=== PATIENT | female | born 1975 | race Caucasian/White ===

== ENCOUNTER → 2017-02-05 | Outpatient (CLI) | payer BC ==
[~2017-02-05] MED LIST: CTLP20T PO; HYDR12.56 PO; MELO-195 PO
--- NOTE | 2017-02-08 13:53 | Diagnostic Imaging Report ---
Bilateral screening mammogram. The current study was also evaluated with a Computer Aided Detection (CAD) system. INDICATION: Screening. No current complaints stated on the questionnaire. COMPARISON: 01/20/16. FINDINGS: The breasts are composed of heterogeneously dense parenchyma which may decrease mammographic sensitivity. There is no mass, architectural distortion or suspicious cluster of calcification. Allowing for technique and positional differences, no suspicious change is seen. IMPRESSION: Dense breasts with no definite change. ACR BI-RADS Category 2: Benign findings. Result letter will be mailed to the patient. Note: At least 10% of breast cancer is not imaged by mammography. Dictated by: Dictated on workstation # [id number]
== END ==
LOC: RAD 07:26
PROVIDERS: ATTEND Family Medicine
DX: Z12.31 Encounter for screening mammogram for malignant neoplasm of breast (principal)
CPT/HCPCS: 77067

== ENCOUNTER → 2018-02-07 | Outpatient (CLI) | payer BC ==
--- NOTE | 2018-02-07 10:22 | Diagnostic Imaging Report ---
INDICATION: Routine screening. COMPARISON: 02/05/2017 and 01/20/2016. TECHNIQUE: Screening digital mammography was performed bilaterally with a Computer Aided Detection (CAD) system. FINDINGS: Both breasts are heterogeneously dense, limiting the sensitivity of mammography. The overall parenchymal pattern appears to be stable. There are benign-appearing intraparenchymal lymph nodes in the upper outer aspects of both breasts. No spiculated mass or malignant appearing microcalcifications are seen. The axillae are unremarkable. IMPRESSION: No mammographic features suspicious for malignancy are identified. ACR BI-RADS Category 2: Benign findings. Result letter will be mailed to the patient. Note: At least 10% of breast cancer is not imaged by mammography. Dictated by: Dictated on workstation # [id number]
== END ==
LOC: RAD 07:44
PROVIDERS: ATTEND Family Medicine
DX: Z12.31 Encounter for screening mammogram for malignant neoplasm of breast (principal)
CPT/HCPCS: 77067

== ENCOUNTER → 2019-02-16 | Outpatient (CLI) | payer BC ==
--- NOTE | 2019-02-16 20:38 | Diagnostic Imaging Report ---
INDICATION: Routine screening. COMPARISON: Comparison is made with prior mammograms from 02/07/2018 and 02/05/2017. TECHNIQUE: 2D and 3D bilateral screening mammography was performed with computer-aided detection (CAD) system. FINDINGS: Both breasts are heterogeneously dense, limiting the sensitivity of mammography. Benign-appearing nodular densities in the upper-outer aspects of both breasts appear stable. No spiculated mass or malignant-appearing microcalcifications are seen. The axillae are unremarkable. IMPRESSION: No mammographic features suspicious for malignancy are identified. ACR BI-RADS Category 2: Benign findings. Result letter will be mailed to the patient. Note: At least 10% of breast cancer is not imaged by mammography. Dictated by: Dictated on workstation # [id number]
== END ==
LOC: RAD 07:27
PROVIDERS: ATTEND Family Medicine
DX: Z12.31 Encounter for screening mammogram for malignant neoplasm of breast (principal)
CPT/HCPCS: 77067

== ENCOUNTER → 2019-07-11 | Outpatient (CLI) | payer BC ==
[~2019-07-11] MED LIST changes: +CATHETER FLUSH 10 ML SYR IV PRN; +REGADENOSON 0.4 MG/5 ML SYR (LEXISCAN) IV ONE
[2019-07-11 13:33] VITALS: BP 142/76
--- NOTE | 2019-07-11 20:10 | STRESS TEST ---
DATE OF SERVICE: 07/11/2019 RESTING AND POST REGADENOSON TECHNETIUM-99M TETROFOSMIN SPECT CT IMAGING ORDERING PHYSICIAN: Dr. Atkins. PRIMARY PHYSICIAN: Dr. Pena. CLINICAL DIAGNOSIS: Chest discomfort. Baseline images were carried out after injection of 10.69 mCi of technetium-99m Tetrofosmin. This was followed by 0.4 mg regadenoson and 30.3 mCi of technetium-99m Tetrofosmin for stress imaging. The patient noted abdominal cramping, nausea and headache following regadenoson infusion, which resolved in a few minutes. The electrocardiogram showed sinus rhythm and did not change significantly with the regadenoson infusion. Review of images at rest and following stress does not indicate any significant perfusion defects consistent with significant myocardial ischemia or infarction. Gated images show normal global left ventricular systolic function with normal regional wall motion. Left ventricular ejection fraction is calculated to be 78%. CONCLUSIONS: 1. No evidence of any significant myocardial ischemia or infarction on this study. 2. Normal regional wall motion. 3. Normal global left ventricular systolic function with a calculated ejection fraction of 78%. Job ID: [id number] DocumentID: [id number] Dictated Date: 07/11/2019 15:45:09 Power Wood Sawyer Date: 07/11/2019 20:10:31 Dictated By: TOBIAS ATKINS MD, MA, FACP, FACC,
== END ==
LOC: CARD 11:35
PROVIDERS: ATTEND Internal Medicine Cardiovascular Disease
DX: M79.89 Other specified soft tissue disorders (principal); R07.89 Other chest pain; R06.02 Shortness of breath; R00.2 Palpitations
CPT/HCPCS: 78452; 93017; 93225; 93226

== ENCOUNTER 2019-07-25 20:53 | Outpatient (CLI) | payer BC ==
[~2019-07-25 20:53] MED LIST changes: -CATHETER FLUSH 10 ML SYR IV PRN; -REGADENOSON 0.4 MG/5 ML SYR (LEXISCAN) IV ONE
== END 2019-07-26 06:45 | disposition home or self-care (01) ==
LOC: SLEEP 20:53
PROVIDERS: ATTEND Nurse Practitioner
DX: G47.33 Obstructive sleep apnea (adult) (pediatric) (principal); G47.10 Hypersomnia, unspecified
CPT/HCPCS: 95810

== ENCOUNTER 2019-09-08 05:35 | Outpatient (CLI) | payer BC ==
[~2019-09-08] VITALS: Ht 162 cm; Wt 90.9 kg
[2019-09-08] MEDS ORDERED: LOSA1TAB23 PO (09:45)
== END 2019-09-08 10:57 | disposition home or self-care (01) ==
LOC: PREOP 05:35
PROVIDERS: ATTEND Surgery
DX: Z01.818 Encounter for other preprocedural examination (principal)

== ENCOUNTER 2019-09-15 10:17 | Day surgery (SDC) | payer BC ==
--- NOTE | 2019-09-04 12:19 | HISTORY AND PHYSICAL ---
DATE OF SERVICE: PROCEDURE DATE: 09/15/2019. ATTENDING PHYSICIAN: Dr. Pena. HISTORY OF PRESENT ILLNESS: The patient is a 43-year-old female who is known to us. She does have a history of colon polyps and reports these were first detected in her teen years. 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 She did have a colonoscopy in 2007 where she was found to have a benign polyp of the sigmoid colon. She then had been in 2008 where 2 polyps were identified at the transverse and ascending colon, which were also benign. She did have a colonoscopy in 2011. A hyperplastic polyp was detected in the descending colon. She then underwent her last colonoscopy in 2014 where it was found to have a hyperplastic polyp of the distal sigmoid colon with some mild sigmoid diverticulosis and chronic stage I external and internal hemorrhoids. On today's visit, the patient reports she is again in need of a followup colonoscopy. She denies any blood in her stool as well as no family history of colon cancer. She does report occasional episodes of diarrhea, but denies any constipation or any abdominal pain. She denies any other symptoms. PAST MEDICAL HISTORY: Obstructive sleep apnea, hypertension, mild cardiomegaly. PAST SURGICAL HISTORY: Tonsillectomy in , in 1990, tubal ligation in 1998, partial hysterectomy in 2002, laparoscopic cholecystectomy in 2005, left foot ORIF in 2007, removal of left foot hardware in 2008, repair of left median nerve in 2017, removal of scar tissue and tendon release of the left wrist in 2018. ALLERGIES: No known drug allergies. MEDICATIONS: Losartan 100 mg daily. SOCIAL HISTORY: Negative for social for alcohol. FAMILY HISTORY: Mother; DVT, hypertension. Father; hypertension, myocardial infarction. Brother, hypertension. Paternal grandmother; lung cancer, stroke, hypertension. Paternal grandfather; hypertension. Maternal grandmother and grandfather; hypertension. VITAL SIGNS: Blood pressure is 142/68. Current weight is 204.9, 5 feet 3 inches. REVIEW OF SYSTEMS: A well-nourished female, in no acute distress. She is not experiencing any shortness of breath or difficulty breathing. No chest pain, palpitations or diaphoresis. No nausea, vomiting or abdominal pain. She does report occasional episodes of diarrhea, but no constipation. No red blood per rectum. No dark tarry stools. No fever or chills. No recent inadvertent weight loss. All other review of systems negative. PHYSICAL EXAMINATION: CHEST: Clear. Good breath sounds bilaterally. HEART: Regular, no murmurs. EXTREMITIES: No lower extremity edema. Negative Homans sign. HEENT: No scleral icterus. No cervical lymphadenopathy. ABDOMEN: Soft, nontender, nondistended. SKIN: Warm, dry and pink. NEUROLOGIC: Awake, alert and oriented x3. ASSESSMENT AND PLAN: A 43-year-old female with a history of polyps who has also had juvenile polyps. Her last colonoscopy was in 2014 where a polyp was again detected, which was hyperplastic and benign. We will at this time recommend proceeding with a screening colonoscopy. The risks and benefits of the procedure as well as the procedure and home care instructions were explained to the patient. The patient verbalized understanding of instructions and agrees to this plan. At this time, we will proceed with scheduling the patient for a screening colonoscopy. Job ID: [id number] DocumentID: [id number] Dictated Date: 09/04/2019 11:02:17 Produce Runner Date: 09/04/2019 12:18:55 Dictated By: BURAK ALCAZAR APRN
[2019-09-15] VITALS (10 sets, daily range): BP systolic 104–136; BP diastolic 60–86
[~2019-09-15] VITALS: Ht 160 cm; Wt 90.9 kg
[~2019-09-15 10:17] MED LIST changes: +LOSA1TAB23 PO
[2019-09-15] MEDS ORDERED: NS IV 500 ML 500 ML IV PRN (10:24)
[2019-09-15] MEDS ORDERED: NS IV 500 ML 500 ML ONE (10:26)
[2019-09-15] MEDS ORDERED: fentaNYL INJECTION 100 MCG/2 ML AMP IVP ONE (10:30)
[2019-09-15] MEDS ORDERED: LIDOCAINE JELLY 2% 6 ML SYRINGE MM PRN (10:30)
--- NOTE | 2019-09-15 10:43 | Conscious Sedation/ASA ---
Conscious Sedation Pre-Proced Time 10:40 ASA Score 2 For ASA 3 and 4: Consider anesthesia and medical clearance. Also, for patients with a history of failed moderate sedation consider anesthesia. Airway Lungs Heart ASA score ASA 1: a normal healthy patient ASA 2: a patient with a mild systemic disease (mid diabetes, controlled hypertension, obesity ASA 3: a patient with a severe systemic disease that limits activity (angina, COPD, prior Myocardial infarction) ASA 4: a patient with an incapacitating disease that is a constant threat to life (CHF, renal failure) ASA 5: a moribund patient not expected to survive 24 hrs. (ruptured aneurysm) ASA 6: a declared brain- patient whose organs are being harvested. For emergent operations, add the letter E after the classification Mallampati Classification Grade 2 Sedation Plan Analgesia, Amnesia, Plan communicated to team members, Discussed options with patient/fam, Discussed risks with patient/fam The patient is an appropriate candidate to undergo the planned procedure, sedation, and anesthesia. The patient immediately re-assessed prior to indication. JAVED OLIVO MD Sep 15, 2019 10:43 POS
--- NOTE | 2019-09-15 10:44 | Progress Note-Pre Operative ---
Pre-Operative Progress Note H&P Reviewed The H&P was reviewed, patient examined and no changes noted. Date Seen by Provider: Sep 15, 2019 Time Seen by Provider: 10:40 Date H&P Reviewed: Sep 15, 2019 Time H&P Reviewed: 10:40 Pre-Operative Diagnosis: hx colon polyp/screening JAVED OLIVO MD Sep 15, 2019 10:44 POS
[2019-09-15] MEDS ORDERED: ACETAMINOPHEN 325 MG TABLET PO PRN (10:45)
[2019-09-15] MEDS ORDERED: ONDANSETRON 4 MG/2 ML (SDV) Z0FRAN IVP PRN (10:45)
[2019-09-15] MEDS ORDERED: HYDROcodone/APAP 5 MG/325 MG (LORTAB) TAB PO PRN (10:45)
[2019-09-15] MEDS ORDERED: morphine INJ 10 MG/ML 1ML (SYR OR VIAL) IVP PRN ×2 (10:45)
--- NOTE | 2019-09-15 10:46 | Discharge Inst-Surgical ---
D/C Lap Instructions-GEOVANI Follow Up Activity as tolerated High Fiber Diet 25g or more per day Avoid Alcohol, Caffeine, Spicy [place] and Acid foods. Drink 64 fluid oz or more of fluids per day. Symptoms to Report: Fever over 101 degree F, Nausea/Vomiting If any problems/questions: Contact your physician or go to Emergency Room JAVED OLIVO MD Sep 15, 2019 10:46 POS
[2019-09-15] MEDS: MIDAZOLAM 5 MG/5 ML (VERSED) VIAL IV PRN ×5 (11:10→11:25)
[2019-09-15] MEDS ORDERED: MIDAZOLAM 5 MG/5 ML (VERSED) VIAL ONE ×2 (11:11)
[2019-09-15] MEDS ORDERED: LIDOCAINE JELLY 2% 6 ML SYRINGE ONE (11:11)
[2019-09-15] MEDS ORDERED: fentaNYL INJECTION 100 MCG/2 ML AMP ONE ×2 (11:12→11:17)
--- NOTE | 2019-09-15 12:40 | Progress Note-Post Operative ---
Post-Operative Progess Note Surgeon (s)/Expenditure Requisition Clerk (s) Surgeon JAVED OLIVO MD Expenditure Requisition Clerk: none Pre-Operative Diagnosis hx colon polyp/screening Post-Operative Diagnosis mild chronic stage 2 ext and int hemorrhoids. Procedure & Operative Findings Date of Procedure 09/15/19 Procedure Performed/Findings colonoscopy Anesthesia Type cs Estimated Blood Loss Estimated blood loss (mL): minimal Specimens/Packing Specimens Removed none JAVED OLIVO MD Sep 15, 2019 12:40 POS
--- NOTE | 2019-09-15 14:41 | OPERATIVE REPORT ---
DATE OF SERVICE: 09/15/2019 ATTENDING PRIMARY CARE PHYSICIAN: Beth Pena MD PREOPERATIVE DIAGNOSIS: History of juvenile polyps. POSTOPERATIVE DIAGNOSIS: Mild chronic stage II external and internal hemorrhoids. Mild sigmoid diverticulosis. PROCEDURE: Colonoscopy. SURGEON: Javed Olivo MD ANESTHESIA: Conscious sedation. ESTIMATED BLOOD LOSS: Minimal. FINDINGS: Mild chronic stage II external and internal hemorrhoids. Mild sigmoid diverticulosis. DISPOSITION: The patient tolerated the procedure well. INDICATIONS: The patient is a 43-year-old female known to us. She has a history of juvenile polyps as well as benign hyperplastic polyps. She began to have colonoscopies at a young age. She reports as an adult she did have a colonoscopy in 2007, 2008 as well as in 2014. The last colonoscopy we had done and she was found to have a small hyperplastic polyp of the distal sigmoid colon; however, no juvenile polyps. She is again here for a followup for her history of juvenile polyposis syndrome. DESCRIPTION OF PROCEDURE: The patient was brought to the endoscopy suite, laid in the left lateral decubitus position. After adequate IV pain and sedative medications and conscious sedation anesthesia, a digital rectal examination was performed. Mild chronic stage II external and internal hemorrhoids identified, not actively edematous nor inflamed and no bleeding. Normal sphincter tone was felt and there were no palpable masses. The endoscope was then intubated to the anus and rectum gently insufflated. The endoscope was then advanced to the valves of [place] of the rectum with no polyps or any neoplasms identified. In the sigmoid colon, there was a very mild or early diverticulosis. The endoscope was then advanced to the remainder of the descending, transverse and ascending colon to the cecum. These segments were normal. There were no polyps or any neoplasms identified throughout the colon or rectum. The endoscope was then slowly withdrawn while taking a second look and suctioning of residual air with no additional findings. The patient tolerated the procedure well. We will recommend a high fiber diet with at least 25 grams of fiber daily as well as significant amounts of water to promote soft stools on a daily basis. Due to her history of juvenile polyposis syndrome we will recommend a followup colonoscopy in 5 years. Job ID: [id number] DocumentID: [id number] Dictated Date: 09/15/2019 11:39:59 Retail Furniture Sales Date: 09/15/2019 14:39:52 Dictated By: JAVED OLIVO MD
== END 2019-09-15 12:15 | disposition home or self-care (01) ==
LOC: ENDO 10:17
PROVIDERS: ATTEND Surgery
DX: Z12.11 Encounter for screening for malignant neoplasm of colon (principal); K57.30 Diverticulosis of large intestine without perforation or abscess without bleeding; K64.1 Second degree hemorrhoids; K64.8 Other hemorrhoids; G47.33 Obstructive sleep apnea (adult) (pediatric); I10 Essential (primary) hypertension; Z86.010 Personal history of colon polyps; Z90.710 Acquired absence of both cervix and uterus; Z90.49 Acquired absence of other specified parts of digestive tract; Z86.718 Personal history of other venous thrombosis and embolism; Z79.82 Long term (current) use of aspirin; Z86.73 Personal history of transient ischemic attack (TIA), and cerebral infarction without residual deficits; Z80.1 Family history of malignant neoplasm of trachea, bronchus and lung

== ENCOUNTER → 2020-03-06 | Outpatient (CLI) | payer BC ==
--- NOTE | 2020-03-06 09:12 | Diagnostic Imaging Report ---
EXAMINATION: Digital mammogram bilateral screening with CAD. INDICATION: Screening. COMPARISON: This study was compared to the prior exams of 02/16/2019, 02/07/2018, 02/05/2017, and 01/20/2016. PERSONAL HISTORY: At this time, there are no current complaints. FINDINGS: The fibroglandular tissue in both breasts is heterogeneously dense. This does limit the sensitivity of this exam. Overall, there does not appear to have been any significant change when compared to the prior study. No primary or secondary sign of malignancy is noted. IMPRESSION: There is no radiographic evidence for malignancy. ACR BI-RADS Category 1: Negative. Result letter will be mailed to the patient. Note: At least 10% of breast cancer is not imaged by mammography. Dictated by: Dictated on workstation # [id number]
== END ==
LOC: RAD 07:26
PROVIDERS: ATTEND Family Medicine
DX: Z12.31 Encounter for screening mammogram for malignant neoplasm of breast (principal)
CPT/HCPCS: 77063; 77067

== ENCOUNTER → 2020-05-06 | Outpatient (CLI) | payer BC ==
[2020-05-06 16:35] LABS: BASOPHILS # (AUTO) 0.1 10^3/uL (0.0-0.1); BASOPHILS % (AUTO) 1 % (0-10); EOSINOPHILS # (AUTO) 0.3 10^3/uL (0.0-0.3); EOSINOPHILS % (AUTO) 3 % (0-10); HEMATOCRIT 41 % (35-52); HEMOGLOBIN 13.9 G/DL (11.5-16.0); LYMPHOCYTES # (AUTO) 2.8 X 10^3 (1.0-4.0); LYMPHOCYTES % (AUTO) 27 % (12-44); MEAN CORPUSCULAR HEMOGLOBIN 28 PG (25-34); MEAN CORPUSCULAR HGB CONC 34 G/DL (32-36); MEAN CORPUSCULAR VOLUME 84 FL (80-99); MEAN PLATELET VOLUME 8.9 FL (7.4-10.4); MONOCYTES # (AUTO) 0.7 X 10^3 (0.0-1.0); MONOCYTES % (AUTO) 7 % (0-12); NEUTROPHILS # (AUTO) 6.3 X 10^3 (1.8-7.8); NEUTROPHILS % (AUTO) 62 % (42-75); PLATELET COUNT 406 10^3/uL (130-400); RED CELL DISTRIBUTION WIDTH 14.2 % (10.0-14.5); WHITE BLOOD COUNT 10.1 10^3/uL (4.3-11.0)
[2020-05-06 16:46] LABS: ALBUMIN 4.6 GM/DL (3.2-4.5); CHLORIDE 102 MMOL/L (98-107); POTASSIUM 3.4 MMOL/L (3.6-5.0); SODIUM 139 MMOL/L (135-145)
[2020-05-06 16:47] LABS: CALCIUM 9.7 MG/DL (8.5-10.1)
[2020-05-06 16:48] LABS: GLUCOSE 98 MG/DL (70-105); TOTAL PROTEIN 8.1 GM/DL (6.4-8.2)
[2020-05-06 16:49] LABS: CARBON DIOXIDE 23 MMOL/L (21-32)
[2020-05-06 16:50] LABS: BILIRUBIN,TOTAL 0.9 MG/DL (0.1-1.0)
[2020-05-06 16:52] LABS: ALKALINE PHOSPHATASE 49 U/L (40-136); CREATININE SERUM 0.77 MG/DL (0.60-1.30); GFR ESTIMATED > 60
[2020-05-06 16:53] LABS: BUN/CREATININE RATIO 13
[2020-05-06 16:54] LABS: MAGNESIUM 2.3 MG/DL (1.6-2.4)
[2020-05-06 16:55] LABS: ALANINE AMINOTRANSFERASE 37 U/L (0-55)
[2020-05-06 16:57] LABS: ERYTHROCYTE SEDIMENTATION RATE 6 MM/HR (0-20)
== END ==
LOC: LAB 16:11
PROVIDERS: ATTEND Internal Medicine Cardiovascular Disease
DX: I10 Essential (primary) hypertension (principal); R00.2 Palpitations; M79.89 Other specified soft tissue disorders
CPT/HCPCS: 36415; 80053; 83735; 84443; 85025; 85652

== ENCOUNTER → 2020-05-07 | Outpatient (CLI) | payer BC | LOC: CARD 11:30 | PROVIDERS: ATTEND Internal Medicine Cardiovascular Disease | DX: I10 Essential (primary) hypertension (principal); M79.89 Other specified soft tissue disorders; R00.2 Palpitations | CPT/HCPCS: 93225; 93226 ==

== ENCOUNTER → 2021-03-14 | Outpatient (CLI) | payer BC ==
--- NOTE | 2021-03-14 17:27 | Diagnostic Imaging Report ---
INDICATION: Routine screening. Comparison is made with prior mammogram from 03/06/2020 and 02/16/2019. 2-D and 3-D bilateral screening mammography was performed with CAD. Both breasts are heterogeneously dense, limiting the sensitivity of mammography. Nodular densities in the upper and outer aspects of both breasts appears stable. No spiculated mass or malignant appearing microcalcifications are seen. Axillae are unremarkable. IMPRESSION: BI-RADS Category 2 No mammographic features suspicious for malignancy are identified. ACR BI-RADS Category 2: Benign findings. Result letter will be mailed to the patient. Note: At least 10% of breast cancer is not imaged by mammography. Dictated by: Dictated on workstation # [id number]
== END ==
LOC: RAD 11:31
PROVIDERS: ATTEND Family Medicine
DX: Z12.31 Encounter for screening mammogram for malignant neoplasm of breast (principal)
CPT/HCPCS: 77063; 77067

== ENCOUNTER → 2021-03-14 | Outpatient (CLI) | payer BC | LOC: CARD 11:33 | PROVIDERS: ATTEND Internal Medicine Cardiovascular Disease | DX: I34.0 Nonrheumatic mitral (valve) insufficiency (principal) | CPT/HCPCS: 93225; 93226; 93306 ==

== ENCOUNTER → 2021-07-04 | Outpatient (CLI) | payer BC ==
[~2021-07-04] MED LIST changes: +CATHETER FLUSH 10 ML SYR IV PRN; +REGADENOSON 0.4 MG/5 ML SYR (LEXISCAN) IV ONE
[2021-07-04 09:09] VITALS: BP 145/84
--- NOTE | 2021-07-08 13:24 | STRESS TEST ---
DATE OF SERVICE: 07/04/2021 RESTING AND POST REGADENOSON TECHNETIUM-99M TETROFOSMIN SPECT CT IMAGING CLINICAL DIAGNOSIS: Shortness of breath. Baseline images were carried out after injection of 10.61 mCi of technetium-99m Tetrofosmin. This was followed by 0.4 mg regadenoson and 29.4 mCi of technetium-99m Tetrofosmin for stress imaging. The electrocardiogram showed sinus rhythm at baseline. It did not change significantly with regadenoson infusion. The patient tolerated the procedure well. Review of images at rest and following stress does not indicate any distinct perfusion defects consistent with significant myocardial ischemia or infarction. Gated images show normal global left ventricular systolic function with normal regional wall motion. Left ventricular ejection fraction is calculated to be 59%. CONCLUSIONS: 1. No evidence of significant myocardial ischemia or infarction on this study. 2. Normal regional wall motion. 3. Normal global left ventricular systolic function with a calculated ejection fraction 59%. Job ID: [id number] DocumentID: [id number] Dictated Date: 07/08/2021 13:09:37 Bank Representative Date: 07/08/2021 13:23:39 Dictated By: TOBIAS ROSAS MD, MA, FACP, FACC,
== END ==
LOC: CARD 07:45
PROVIDERS: ATTEND Internal Medicine Cardiovascular Disease
DX: R06.09 Other forms of dyspnea (principal); R06.02 Shortness of breath
CPT/HCPCS: 78452; 93017; A9502

== ENCOUNTER → 2022-07-13 | Outpatient (CLI) | payer BC ==
[~2022-07-13] MED LIST changes: -CATHETER FLUSH 10 ML SYR IV PRN; -REGADENOSON 0.4 MG/5 ML SYR (LEXISCAN) IV ONE
--- NOTE | 2022-07-13 09:13 | Diagnostic Imaging Report ---
INDICATION: Routine screening. COMPARISON: 03/14/2021 and 03/06/2020. TECHNIQUE: 2D and 3D bilateral screening mammography was performed with CAD. FINDINGS: Both breasts are heterogeneously dense, limiting the sensitivity of mammography. The circumscribed nodules in both breasts appear stable. No spiculated mass or malignant-appearing microcalcifications are seen. The axillae are unremarkable. IMPRESSION: No mammographic features suspicious for malignancy are identified. ACR BI-RADS Category 2: Benign findings. Result letter will be mailed to the patient. Note: At least 10% of breast cancer is not imaged by mammography. Dictated by: Dictated on workstation # [id number]
== END ==
LOC: RAD 07:30
PROVIDERS: ATTEND Nurse Practitioner Family
DX: Z12.31 Encounter for screening mammogram for malignant neoplasm of breast (principal)
CPT/HCPCS: 77063; 77067